=== PATIENT | female | born 1945 | race Caucasian/White ===

== ENCOUNTER 2017-07-19 15:32 | Inpatient (IN) | payer BC, MEDICARE ==
[2017-07-19] MEDS ORDERED: Sodium Chloride 0.9% 5 ML Syringe FLUSH PRN (15:39)
[2017-07-19] MEDS ORDERED: Ondansetron 4 MG/2 ML SDV IVPUSH ONE (15:42)
[2017-07-19] MEDS ORDERED: Acetaminophen 325 MG Tab PO ONE (15:44)
--- NOTE | 2017-07-19 15:49 | EDM.PDOC ---
ED HPI GENERAL MEDICAL PROBLEM - General Chief Complaint: Respiratory Problem Stated Complaint: FEVER, SOB Time Seen by Provider: 07/19/17 15:39 Source of Information: Reports: Patient History Limitations: Reports: No Limitations - History of Present Illness INITIAL COMMENTS - FREE TEXT/NARRATIVE: PATIENT IS A 71-YEAR-OLD FEMALE WHO PRESENTS TO THE EMERGENCY DEPARTMENT THIS AFTERNOON VIA EMS FOR COMPLAINT OF FEVER AND SHORTNESS OF BREATH. PATIENT STATES THAT SHE HAS HAD BRONCHITIS FOR 2 WEEKS AND FELT WORSE YESTERDAY, AND HAD NAUSEA, VOMITING, DIARRHEA, A FEVER. THIS MORNING SHE NOTICED A BLOTCHY RASH ON CHEST AND ABDOMEN AND WAS BECOMING MORE SHORT OF BREATH. PATIENT CONTACTED [facility] AND WAS ADVISED TO CALL 911. PATIENT WAS FOUND TACHYCARDIC, TACHYPNEIC, AND HAD A FEVER OF 103 PER EMS. PATIENT DENIES CHEST PAIN, NECK STIFFNESS, ABDOMINAL PAIN, OR EXTREMITY EDEMA. Onset: Gradual Onset Date: 07/18/17 Duration: Day(s): Location: Reports: Chest Quality: Reports: Ache Severity: Mild Improves with: Reports: None Worsens with: Reports: Breathing Associated Symptoms: Reports: Fever/Chills, Headaches, Rash, Shortness of Breath - Related Data Allergies Allergy/AdvReac Type Severity Reaction Status Date / Time morphine Allergy Rash Verified 07/19/17 16:08 Home Meds: Home Meds Dasatinib [Sprycel] 100 mg PO DAILY 06/14/16 [History] Etodolac [Etodolac] 500 mg PO DAILY PRN 06/14/16 [History] LORazepam [Ativan] 0.5 mg PO Q6H PRN 06/14/16 [History] oxyCODONE ER [OxyCONTIN] 20 mg PO BID PRN 06/14/16 [History] Cholecalciferol (Vitamin D3) [Vitamin D3] 2,000 units PO DAILY 07/19/17 [History ] Cyanocobalamin (Vitamin B12) [Vitamin B12] 500 mcg PO DAILY 07/19/17 [History] Ferrous Sulfate 325 mg PO DAILY 07/19/17 [History] Multivitamin [Multivitamins] 1 cap PO DAILY 07/19/17 [History] Ranitidine HCl [Ranitidine] 150 mg PO BID 07/19/17 [History] Triamcinolone Acetonide [Kenalog 0.1% Crm] 1 applic TOP DAILY PRN 07/19/17 [ History] Past Medical History Musculoskeletal History: Reports: Back Pain, Chronic Neurological History: Reports: Headaches, Chronic, Migraines Psychiatric History: Reports: Anxiety Oncologic (Cancer) History: Reports: Leukemia, Other (See Below) Other Oncologic History: Leukemia diagnosed 2006; takes spiracel po daily. - Past Surgical History GI Surgical History: Reports: Appendectomy, Bariatric Procedure, Cholecystectomy Neurological Surgical History: Reports: Spinal Fusion Musculoskeletal Surgical History: Reports: Other (See Below) Oncologic Surgical History: Reports: Bone Marrow Aspiration Social & Family History - Tobacco Use Smoking Status *Q: Never Smoker Second Hand Smoke Exposure: No - Alcohol Use Days Per Week of Alcohol Use: 0 - Recreational Drug Use Recreational Drug Use: No ED ROS GENERAL - Review of Systems Review Of Systems: ROS reveals no pertinent complaints other than HPI. Constitutional: Reports: Fever, Chills, Fatigue HEENT: Reports: No Symptoms Respiratory: Reports: Shortness of Breath, Pleuritic Chest Pain Cardiovascular: Reports: No Symptoms Endocrine: Reports: No Symptoms GI/Abdominal: Reports: Nausea : Reports: No Symptoms Musculoskeletal: Reports: No Symptoms Skin: Reports: Rash (CHEST AND ABDOMEN) Neurological: Reports: No Symptoms Psychiatric: Reports: No Symptoms Hematologic/Lymphatic: Reports: No Symptoms Immunologic: Reports: No Symptoms ED EXAM, GENERAL - Physical Exam Exam: See Below Exam Limited By: No Limitations General Appearance: Alert, WD/WN, Mild Distress Eye Exam: Bilateral Eye: Normal Inspection Nose: Normal Inspection, Normal Mucosa, No Blood Throat/Mouth: Normal Inspection, Normal Oropharynx, No Airway Compromise, Other (NO TONGUE EDEMA) Head: Atraumatic, Normocephalic. No: Facial Swelling Neck: Normal Inspection. No: Lymphadenopathy (L), Lymphadenopathy (R) Respiratory/Chest: No Respiratory Distress, Rales (BIBASILAR) Cardiovascular: No Murmur, Tachycardia GI/Abdominal: Normal Bowel Sounds, Soft, Non-Tender Back Exam: Normal Inspection. No: CVA Tenderness (L), CVA Tenderness (R) Extremities: Normal Inspection, No Pedal Edema Neurological: Alert, Oriented, Normal Cognition Psychiatric: Normal Affect, Normal Mood Skin Exam: Warm, Dry, Intact, Normal Color, Rash (ERYTHEMATOUS URTICARIA THAT BLANCHES.) Lymphatic: No Adenopathy Course - Vital Signs Last Recorded V/S: Last Vital Signs Temp 103.1 F H 07/19/17 16:03 Pulse 122 H 07/19/17 16:03 Resp 36 H 07/19/17 16:03 BP 146/97 H 07/19/17 16:03 Pulse Ox 99 07/19/17 16:03 - Orders/Labs/Meds Orders: Active Orders 24 hr Category Date Time Status EKG Documentation Completion [RC] ASDIRECTED Care 07/19/17 15:40 Active Oxygen Therapy [RC] PRN Care 07/19/17 15:39 Active Peripheral IV Care [RC] . DIRECTED Care 07/19/17 15:40 Active Pulse Oximetry [RC] CONTINUOUS Care 07/19/17 15:39 Active Chest 2V [CR] Stat Exams 07/19/17 15:39 Ordered COMPREHENSIVE METABOLIC PN,CMP [CHEM] Stat Lab 07/19/17 16:00 Received CULTURE BLOOD [BC] Stat Lab 07/19/17 15:45 Received CULTURE BLOOD [BC] Stat Lab 07/19/17 16:00 Received INFLUENZA A+B AG SCREEN [RM] Stat Lab 07/19/17 15:45 Received LACTIC ACID [CHEM] Stat Lab 07/19/17 16:00 Received MAGNESIUM [CHEM] Stat Lab 07/19/17 16:00 Received TROPONIN I [CHEM] Stat Lab 07/19/17 16:00 Received Sodium Chloride 0.9% [Syrex Flush] Med 07/19/17 15:39 Active 5 ml FLUSH Q8HR PRN Blood Culture x2 Reflex Set [OM.PC] Stat Oth 07/19/17 15:40 Ordered Peripheral IV Insertion Adult [OM.PC] Urgent Oth 07/19/17 15:39 Ordered Medication Orders Sodium Chloride (Syrex Flush) 5 ml FLUSH Q8HR PRN PRN Reason: Keep Vein Open Labs: Laboratory Tests 07/19/17 Range/Units 16:00 WBC 20.6 H (5.0-10.0) 10^3/uL RBC 4.32 (3.80-5.50) 10^6/uL Hgb 12.6 (12.0-16.0) g/dL Hct 38.0 (37.0-47.0) % MCV 88.1 (82.0-92.0) fL MCH 29.2 (27.0-31.0) pg MCHC 33.2 (32.0-36.0) g/dL RDW 13.8 (11.5-14.5) % Plt Count 391 H (150-300) 10^3/uL MPV 7.3 L (7.4-10.4) fL Neut % (Auto) 93.4 H (50.0-70.0) % Lymph % (Auto) 4.5 L (20.0-40.0) % [place] % (Auto) 2.0 (2.0-8.0) % Eos % (Auto) 0.1 L (1.0-3.0) % Baso % (Auto) 0.0 (0.0-1.0) % Neut # (Auto) 19.3 H (2.5-7.0) 10^3/uL Lymph # (Auto) 0.9 L (1.0-4.0) 10^3/uL [place] # (Auto) 0.4 (0.1-0.8) 10^3/uL Eos # (Auto) 0.0 L (0.1-0.3) 10^3/uL Baso # (Auto) 0.0 (0.0-0.1) 10^3/uL Meds: Medications Generic Name Dose Route Start Last Admin Trade Name Freq PRN Reason Stop Dose Admin Sodium Chloride 5 ml 07/19/17 15:39 Syrex Flush FLUSH Q8HR PRN Keep Vein Open Discontinued Medications Generic Name Dose Route Start Last Admin Trade Name Freq PRN Reason Stop Dose Admin Acetaminophen 650 mg 07/19/17 15:44 Tylenol PO 07/19/17 15:45 NOW ONE Sodium Chloride 500 mls @ 999 mls/hr 07/19/17 15:39 Normal Saline IV 07/19/17 16:09 .BOLUS ONE Ondansetron HCl 4 mg 07/19/17 15:42 Zofran IVPUSH 07/19/17 15:43 ONETIME ONE - Radiology Interpretation Free Text/Narrative:: Chest x-ray shows mild bilateral lower lobe pneumonia - Re-Assessments/Exams Free Text/Narrative Re-Assessment/Exam: 07/19/17 17:24 Patient afebrile, nontoxic appearing, vital signs stable. Rocephin and Zithromax given. Discussed case with Lilly Carlton at the [facility] and she will admit patient and follow. Departure - Departure Time of Disposition: 17:26 Disposition: Admitted As Inpatient 68 Condition: Fair Clinical Impression: Pneumonia Qualifiers: Pneumonia type: due to unspecified organism Laterality: bilateral Lung location : lower lobe of lung Qualified Code(s): J18.9 - Pneumonia, unspecified organism - Discharge Information Referrals: PCP,Unobtain [Primary Care Provider] - Forms: ED Department Discharge - My Orders Last 24 Hours: My Active Orders 07/19/17 15:39 Oxygen Therapy [RC] PRN Pulse Oximetry [RC] CONTINUOUS Chest 2V [CR] Stat Sodium Chloride 0.9% [Syrex Flush] 5 ml FLUSH Q8HR PRN Peripheral IV Insertion Adult [OM.PC] Urgent 07/19/17 15:40 EKG Documentation Completion [RC] ASDIRECTED Peripheral IV Care [RC] . DIRECTED Blood Culture x2 Reflex Set [OM.PC] Stat 07/19/17 15:45 CULTURE BLOOD [BC] Stat INFLUENZA A+B AG SCREEN [RM] Stat 07/19/17 16:00 COMPREHENSIVE METABOLIC PN,CMP [CHEM] Stat CULTURE BLOOD [BC] Stat LACTIC ACID [CHEM] Stat MAGNESIUM [CHEM] Stat TROPONIN I [CHEM] Stat - Assessment/Plan Last 24 Hours: My Active Orders 07/19/17 15:39 Oxygen Therapy [RC] PRN Pulse Oximetry [RC] CONTINUOUS Chest 2V [CR] Stat Sodium Chloride 0.9% [Syrex Flush] 5 ml FLUSH Q8HR PRN Peripheral IV Insertion Adult [OM.PC] Urgent 07/19/17 15:40 EKG Documentation Completion [RC] ASDIRECTED Peripheral IV Care [RC] . DIRECTED Blood Culture x2 Reflex Set [OM.PC] Stat 07/19/17 15:45 CULTURE BLOOD [BC] Stat INFLUENZA A+B AG SCREEN [RM] Stat 07/19/17 16:00 COMPREHENSIVE METABOLIC PN,CMP [CHEM] Stat CULTURE BLOOD [BC] Stat LACTIC ACID [CHEM] Stat MAGNESIUM [CHEM] Stat TROPONIN I [CHEM] Stat Assessment:: Pneumonia Plan: Admission to inpatient
[2017-07-19] MEDS: Sodium Chloride 0.9% 500 ML IV ONE ×2 (15:58→16:51)
[2017-07-19 16:33] LABS: CHLORIDE,CL 94 mmol/L (98-115); SODIUM,NA 130 mmol/L (136-145)
[2017-07-19] MEDS ORDERED: Sodium Chloride 0.9% 500 ML ONE (16:45)
[2017-07-19] MEDS ORDERED: Sodium Chloride 0.9% 500 ML IV SCH (16:45)
[2017-07-19] MEDS ORDERED: Azithromycin 500 MG in Sodium Chloride 0.9% 250 ML IV ONE (17:20)
[2017-07-19] MEDS ORDERED: cefTRIAXone 1 GM Vial IVPUSH ONE (17:20)
[2017-07-19] MEDS ORDERED: Dextrose 5%-0.45% NaCl 1,000 ML IV SCH (18:15)
[2017-07-19] MEDS: Dextrose 5%-0.45% NaCl 1,000 ML IV SCH (18:45)
[2017-07-19] MEDS ORDERED: Ibuprofen 600 MG Tab PO ONE (19:02)
[2017-07-19] MEDS ORDERED: TRIAMCINOLONE ACETONIDE 0.025% TOP PRN (19:33)
[2017-07-19] MEDS: LORazepam 0.5 MG Tab PO SCH (20:07)
[2017-07-19] MEDS: oxyCODONE ER 10 MG TAB.ER PO SCH (20:08)
[2017-07-20] MEDS ORDERED: diphenhydrAMINE 25 MG Cap PO ONE (05:44)
[2017-07-20] MEDS ORDERED: methylPREDNISolone Sodium Succinate 125 MG/2 ML SDV IVPUSH ONE (05:49)
[2017-07-20] MEDS: Triamcinolone Acetonide 0.1% Oint 15 GM Tube TOP PRN ×2 (06:07→21:26)
[2017-07-20 08:01] LABS: CHLORIDE,CL 97 mmol/L (98-115); SODIUM,NA 132 mmol/L (136-145)
--- NOTE | 2017-07-20 09:30 | PCM.HP ---
H&P History of Present Illness - General Date of Service: 07/20/17 Admit Problem/Dx: Admission Diagnosis/Problem Admission Diagnosis/Problem Pneumonia Source of Information: Patient, Old Records, RN History Limitations: Reports: No Limitations Generalized Pain Score (Numeric/FACES): 3 - Related Data Allergies/Adverse Reactions: Allergies Allergy/AdvReac Type Severity Reaction Status Date / Time morphine Allergy Rash Verified 07/19/17 16:08 Home Medications: Home Meds Dasatinib [Sprycel] 100 mg PO BEDTIME 06/14/16 [History] Etodolac [Etodolac] 500 mg PO DAILY 06/14/16 [History] LORazepam [Ativan] 0.5 mg PO BEDTIME 06/14/16 [History] oxyCODONE ER [OxyCONTIN] 20 mg PO BEDTIME 06/14/16 [History] Cholecalciferol (Vitamin D3) [Vitamin D3] 2,000 units PO DAILY 07/19/17 [History ] Cyanocobalamin (Vitamin B12) [Vitamin B12] 500 mcg PO DAILY 07/19/17 [History] Ferrous Sulfate 325 mg PO DAILY 07/19/17 [History] Multivitamin [Multivitamins] 1 cap PO DAILY 07/19/17 [History] Ranitidine HCl [Ranitidine] 150 mg PO BIDAC 07/19/17 [History] Triamcinolone Acetonide [Triamcinolone Acetonide 0.025% Crm] 1 applic TOP DAILY PRN 07/20/17 [History] Past Medical History HEENT History: Reports: Impaired Vision Gastrointestinal History: Reports: GERD Musculoskeletal History: Reports: Back Pain, Chronic Neurological History: Reports: Headaches, Chronic, Migraines Psychiatric History: Reports: Anxiety Endocrine/Metabolic History: Reports: Obesity/BMI 30+ Oncologic (Cancer) History: Reports: Leukemia, Other (See Below) Other Oncologic History: Leukemia diagnosed 2006; takes spiracel po daily. - Infectious Disease History Infectious Disease History: Reports: Chicken Pox, Measles, Mumps - Past Surgical History Head Surgeries/Procedures: Reports: None HEENT Surgical History: Reports: Tonsillectomy GI Surgical History: Reports: Appendectomy, Bariatric Procedure, Cholecystectomy Endocrine Surgical History: Reports: None Neurological Surgical History: Reports: Spinal Fusion Musculoskeletal Surgical History: Reports: Arthroscopic Knee, Other (See Below) Other Musculoskeletal Surgeries/Procedures:: bone taken from hip and placed in lower back Oncologic Surgical History: Reports: Bone Marrow Aspiration Dermatological Surgical History: Reports: None Social & Family History - Family History Family Medical History: Noncontributory - Tobacco Use Smoking Status *Q: Never Smoker Second Hand Smoke Exposure: No - Caffeine Use Caffeine Use: Reports: Soda - Alcohol Use Days Per Week of Alcohol Use: 0 - Recreational Drug Use Recreational Drug Use: No H&P Review of Systems - Review of Systems: Review Of Systems: See Below General: Reports: Fever, Chills (yesterday severe chills, none now), Decreased Appetite (poor appetite past 2 weeks however improved today. ). Denies: Night Sweats, Weight Loss, Weight Gain HEENT: Reports: Other (on/off dizziness past 2 weeks yessi since fever. ). Denies : Hearing Changes, Sore Throat, Vertigo Pulmonary: Reports: Shortness of Breath. Denies: Wheezing, Cough, Sputum Cardiovascular: Reports: Lightheadedness. Denies: Chest Pain, Palpitations, Orthopnea, PND, Syncope, Blood Pressure Problem Gastrointestinal: Reports: Black Stool (black stools for past 3 weeks. ), Diarrhea (loose stools past 3 weeks. ), Decreased Appetite. Denies: Abdominal Pain, Anorexia, Bloody Stool, Constipation Genitourinary: Denies: Dysuria, Frequency, Burning, Pain, Urgency, Incontinence , Hematuria Musculoskeletal: Reports: Back Pain (hx of surgery on spine, bone cadaver. ) Skin: Reports: Pallor, Rash Psychiatric: Reports: No Symptoms Neurological: Reports: No Symptoms Hematologic/Lymphatic: Reports: Other (on Iron. ). Denies: Anemia Immunologic: Reports: No Symptoms, Other (allergy to morphine ) Exam - Exam Exam: See Below - Vital Signs Vital Signs: Last Vital Signs Temp 97.2 F 07/20/17 06:19 Pulse 98 07/20/17 06:19 Resp 22 H 07/20/17 06:19 BP 119/53 L 07/20/17 06:19 Pulse Ox 98 07/20/17 07:00 Weight: 265 lb 2 oz - Exam Quality Assessment: No: Supplemental Oxygen General: Alert, Oriented, Cooperative. No: Mild Distress HEENT: No: Mucosa Moist & Innovation Neck: Supple Lungs: Rhonchi Cardiovascular: Regular Rate, Regular Rhythm, Systolic Murmur (Grade II) GI/Abdominal Exam: Normal Bowel Sounds (Female) Exam: Deferred Rectal (Female) Exam: Deferred, Black Stool Back Exam: No: CVA Tenderness (L), CVA Tenderness (R) Skin: Other (diffuse erythematous rash right thigh, left side of left breast and back, non-coalescent, nonblanching,) Neurological: Cranial Nerves Intact Neuro Extensive - Mental Status: Alert, Oriented x3, Normal Mood/Affect, Normal Cognition Psychiatric: Alert, Normal Affect, Normal Mood - Patient Data Lab Results Last 24 hrs: Laboratory Results - last 24 hr 07/19/17 07/20/17 07/20/17 Range/Units 18:45 07:29 07:29 WBC 17.3 H (5.0-10.0) 10^3/uL RBC 3.61 L (3.80-5.50) 10^6/uL Hgb 10.9 L D (12.0-16.0) g/dL Hct 32.0 L (37.0-47.0) % MCV 88.5 (82.0-92.0) fL MCH 30.2 (27.0-31.0) pg MCHC 34.1 (32.0-36.0) g/dL RDW 13.8 (11.5-14.5) % Plt Count 316 H D (150-300) 10^3/uL MPV 7.5 (7.4-10.4) fL Neut % (Auto) 89.8 H (50.0-70.0) % Lymph % (Auto) 6.1 L (20.0-40.0) % [place] % (Auto) 3.2 (2.0-8.0) % Eos % (Auto) 0.2 L (1.0-3.0) % Baso % (Auto) 0.7 (0.0-1.0) % Neut # (Auto) 15.5 H (2.5-7.0) 10^3/uL Lymph # (Auto) 1.1 (1.0-4.0) 10^3/uL [place] # (Auto) 0.6 (0.1-0.8) 10^3/uL Eos # (Auto) 0.0 L (0.1-0.3) 10^3/uL Baso # (Auto) 0.1 (0.0-0.1) 10^3/uL Sodium 132 L (136-145) mmol/L Potassium 3.4 (3.3-5.3) mmol/L Chloride 97 L (98-115) mmol/L Carbon Dioxide 24.4 (21.0-32.0) mmol/L BUN 16 (6-25) mg/dL Creatinine 0.71 (0.51-1.17) mg/dL Est Cr Clr Drug Dosing 70.01 mL/min Estimated GFR (MDRD) > 60 mL/min Glucose 129 H (70-110) mg/dL Calcium 8.1 L (8.7-10.3) mg/dL Total Bilirubin 0.6 (0.2-1.0) mg/dL AST 25 (15-37) U/L ALT 31 (12-78) U/L Alkaline Phosphatase 98 (46-116) IU/L Total Protein 6.3 L (6.4-8.2) g/dL Albumin 2.51 L (3.00-4.80) g/dL Specimen Type Urinvoid Urine Color Yellow (YELLOW) Urine Appearance Slightly cloudy H (CLEAR) Urine pH 5.0 (5.0-9.0) Ur Specific [place] 1.015 (1.005-1.030) Urine Protein 100 H (NEGATIVE) mg/dL Urine Glucose (UA) Negative (NEGATIVE) mg/dL Urine Ketones 15 H (NEGATIVE) mg/dL Urine Occult Blood Trace-intact H (NEGATIVE) Urine Nitrite Negative (NEGATIVE) Urine Bilirubin Large H (NEGATIVE) Urine Urobilinogen 0.2 (0.2-1.0) E.U./dL Ur Leukocyte Esterase Small H (NEGATIVE) Urine RBC 0-5 /HPF Urine WBC >100 H /HPF Ur Epithelial Cells Few /LPF Urine Bacteria Moderate H (NONE TO FEW) /HPF Result Diagrams: 07/21/17 07:33 07/21/17 07:33 *Q Meaningful Use (ADM) - VTE *Q VTE Criteria *Q: - Stroke *Q Stroke Criteria *Q: - AMI *Q AMI Criteria *Q: Problem List Initiated/Reviewed/Updated: Yes Orders Last 24hrs: Active Orders 24 hr Category Date Time Status Activity as Tolerated [RC] DAILY Care 07/19/17 18:15 Active Regular Diet [DIET] Diet 02/22/18 Dinner Active CULTURE URINE [RM] Routine Lab 07/19/17 18:45 Received Acetaminophen [Tylenol Extra Strength] Med 07/19/17 18:41 Active 1,000 mg PO Q4H PRN Cholecalciferol (Vitamin D3) [Vitamin D3] Med 07/20/17 09:00 Active 2,000 units PO DAILY Cyanocobalamin (Vitamin B12) [Vitamin B12] Med 07/20/17 09:00 Active 500 mcg PO DAILY Dasatinib [Sprycel] Med 07/19/17 21:00 Active 100 mg PO BEDTIME Dextrose 5%-0.45% NaCl [Dextrose 5%-1/2 NS] 1,000 ml Med 07/19/17 18:45 Active IV ASDIRECTED Etodolac [Etodolac] Med 07/20/17 09:00 Active 500 mg PO DAILY Ferrous Sulfate Med 07/20/17 09:00 Active 325 mg PO DAILY LORazepam [Ativan] Med 07/19/17 21:00 Active 0.5 mg PO BEDTIME Non-Formulary Medication [NF Drug] Med 07/19/17 19:33 Pending 0 each TOP DAILY PRN Ranitidine [Zantac] Med 07/19/17 21:00 Active 150 mg PO BID Triamcinolone Acetonide [Triamcinolone Acetonide 0.1% Med 07/20/17 05:45 Active Oint] 0.5 gm TOP BID PRN oxyCODONE ER [OxyCONTIN] Med 07/19/17 21:00 Active 20 mg PO BEDTIME Medication Orders Acetaminophen (Tylenol Extra Strength) 1,000 mg PO Q4H PRN PRN Reason: Fever Cholecalciferol (Vitamin D3) 2,000 units PO DAILY CHIP Cyanocobalamin (Vitamin B12) 500 mcg PO DAILY CHIP Ferrous Sulfate (Ferrous Sulfate) 325 mg PO DAILY CHIP Sodium Chloride (Normal Saline) 500 mls @ 500 mls/hr IV ASDIRECTED CHIP Last Admin: 07/19/17 16:53 Dose: 500 mls/hr Dextrose/Sodium Chloride (Dextrose 5%-1/2 Ns) 1,000 mls @ 50 mls/hr IV ASDIRECTED CHIP Last Admin: 07/19/17 18:45 Dose: 50 mls/hr Lorazepam (Ativan) 0.5 mg PO BEDTIME CHIP Last Admin: 07/19/17 20:07 Dose: 0.5 mg (Dasatinib [Sprycel] (100 Mg)*Pt Own Med*) 100 mg PO BEDTIME [facility] Last Admin: 07/19/17 20:08 Dose: 100 mg (Etodolac [Etodolac] (500 Mg)*Pt Own Med*) 500 mg PO DAILY [facility] Triamcinolone Acetonide 0.025% Cream*Pt Own Med* 0 each TOP DAILY PRN PRN Reason: Rash Oxycodone HCl (Oxycontin) 20 mg PO BEDTIME [facility] Last Admin: 07/19/17 20:08 Dose: 20 mg Ranitidine HCl (Zantac) 150 mg PO BID [facility] Last Admin: 07/19/17 20:08 Dose: 150 mg Sodium Chloride (Syrex Flush) 5 ml FLUSH Q8HR PRN PRN Reason: Keep Vein Open Triamcinolone Acetonide (Triamcinolone Acetonide 0.1% Oint) 0.5 gm TOP BID PRN PRN Reason: Itching Last Admin: 07/20/17 06:07 Dose: 1 applic Assessment/Plan Comment:: HISTORY OF PRESENT ILLNESS 71-year-old female was admitted through the ED department due to fever shortness of breath. She states she has been having some upper respiratory bronchitis like symptoms for about 2 weeks, fever chills yesterday feels better today. Yesterday on admission she noticed a significant puritic rash on her chest abdomen. She stated this rash was quite significant on her left thigh about one month ago--spontaneously resolved however now with on her left leg back and left breast. significant ED findings white count 20,000 Lactic acid 2.2 (likely before hydration) UTI, however asymptomatic Chest x-ray,mild interstitial bilateral infiltrates, possible PA and lateral, negative influenza Rocephin and Zithromax Primary impression Pneumonia, CAP, POA, likely strep, although positive blood cultures gram- positive cocci both anaerobic and aerobic will continue with course of treatment for now since she is improving clinically, definitive ABX changed will be determined on BC surveillance. If Strep will remove azithromycin, Hold TNF for her CML. Bacteremia, lactic acid slightly high before hydration. MAP adequate, in the setting of infection qSOFA, 05/31. blood culture surveillance, afebrile, Anemia, not present on admission, normocytic normochromic, likely WBC > RBC stem -cell production, infection related. HX CML Rash, right anterior medial thigh, back, left breast, confluent, warm to touch, smooth, non-petechial, received steroids. does not appear to be cellulitis, likely inflammatory reaction to infection, Hold TNF but doubtful contributory. conservative tx for now. Outline monitor progress. Thrombocytosis, reactive, trending positively Hyponatremia, hypotonic, improved. Urinary tract infection, uncomplicated, asymptomatic. Likely cross covered Chronic myelogenous leukemia, (CML) dx 2006, followed by oncologist, will hold TNF. Consultation, reviewed case with oncologist Dr. Gregg, he agrees with plan. Continue to monitor other chronic conditions hiatal hernia Obesity Osteopenia Gastric bypass, on vitamin B12 supplementation history of laminectomy, chronic back pain, spondylolisthesis, On COT, MEDD 60mg. Hold TNF, continue with course of treatment for now since she is improving clinically, BC Surveillance
[2017-07-20] MEDS: Ferrous Sulfate 325 MG Tab PO SCH (09:58)
[2017-07-20] MEDS: Cyanocobalamin (Vitamin B12) 500 MCG Tab PO SCH (09:58)
[2017-07-20] MEDS: Cholecalciferol (Vitamin D3) 1,000 Unit Tab PO SCH (09:59)
[2017-07-20] MEDS: Dextrose 5%-0.45% NaCl 1,000 ML IV SCH (14:59)
[2017-07-20] MEDS: cefTRIAXone 1 GM Vial IVPUSH SCH (16:15)
[2017-07-20] MEDS: Azithromycin 500 MG in Sodium Chloride 0.9% 250 ML IV SCH (17:38)
[2017-07-20] MEDS: LORazepam 0.5 MG Tab PO SCH (21:26)
[2017-07-20] MEDS: oxyCODONE ER 10 MG TAB.ER PO SCH (21:26)
[2017-07-21] MEDS: Acetaminophen 500 MG Tab PO PRN ×3 (03:03→14:03)
[2017-07-21 08:04] LABS: CHLORIDE,CL 101 mmol/L (98-115); SODIUM,NA 136 mmol/L (136-145)
[2017-07-21] MEDS: Ferrous Sulfate 325 MG Tab PO SCH (08:39)
[2017-07-21] MEDS: Cyanocobalamin (Vitamin B12) 500 MCG Tab PO SCH (08:42)
[2017-07-21] MEDS: Cholecalciferol (Vitamin D3) 1,000 Unit Tab PO SCH (08:42)
[2017-07-21] MEDS: Triamcinolone Acetonide 0.1% Oint 15 GM Tube TOP PRN ×2 (09:27→22:15)
--- NOTE | 2017-07-21 10:07 | PCM.PN ---
- General Info Date of Service: 07/21/17 Functional Status: Reports: Pain Controlled, Tolerating Diet, Urinating, New Symptoms (Severe left-sided temporal headache, she states it started after azithromycin administration IV last night). Denies: Ambulating - Review of Systems General: Denies: Fever, Weakness HEENT: Reports: Headaches (Left-sided temporal headache, sharp, pounding,) Pulmonary: Reports: No Symptoms Cardiovascular: Reports: No Symptoms Gastrointestinal: Reports: No Symptoms Genitourinary: Denies: Dysuria, Frequency, Flank Pain Skin: Reports: Rash (Back, abdomen, left breast and right thigh--improvement) Neurological: Denies: Confusion, Dizziness, Numbness, Paresthesia, Change in Speech Psychiatric: Reports: No Symptoms - Patient Data Vitals - Most Recent: Last Vital Signs Temp 98.6 F 07/21/17 06:56 Pulse 76 07/21/17 06:56 Resp 16 07/21/17 06:56 BP 120/55 L 07/21/17 06:56 Pulse Ox 96 07/21/17 08:10 Weight - Most Recent: 265 lb 2 oz I&O - Last 24 Hours: Intake & Output 07/20/17 07/21/17 07/21/17 22:59 06:59 14:59 Intake Total 910 1125 Output Total 1600 300 Balance -690 825 Lab Results Last 24 Hours: Laboratory Results - last 24 hr 07/21/17 07/21/17 Range/Units 07:33 07:33 WBC 10.6 H (5.0-10.0) 10^3/uL RBC 3.34 L (3.80-5.50) 10^6/uL Hgb 9.9 L (12.0-16.0) g/dL Hct 29.6 L (37.0-47.0) % MCV 88.7 (82.0-92.0) fL MCH 29.6 (27.0-31.0) pg MCHC 33.4 (32.0-36.0) g/dL RDW 14.0 (11.5-14.5) % Plt Count 331 H (150-300) 10^3/uL MPV 7.4 (7.4-10.4) fL Neut % (Auto) 76.7 H (50.0-70.0) % Lymph % (Auto) 13.4 L (20.0-40.0) % [place] % (Auto) 8.5 H (2.0-8.0) % Eos % (Auto) 0.5 L (1.0-3.0) % Baso % (Auto) 0.9 (0.0-1.0) % Neut # (Auto) 8.1 H (2.5-7.0) 10^3/uL Lymph # (Auto) 1.4 (1.0-4.0) 10^3/uL [place] # (Auto) 0.9 H (0.1-0.8) 10^3/uL Eos # (Auto) 0.1 (0.1-0.3) 10^3/uL Baso # (Auto) 0.1 (0.0-0.1) 10^3/uL Sodium 136 (136-145) mmol/L Potassium 3.3 (3.3-5.3) mmol/L Chloride 101 (98-115) mmol/L Carbon Dioxide 24.1 (21.0-32.0) mmol/L BUN 17 (6-25) mg/dL Creatinine 0.66 (0.51-1.17) mg/dL Est Cr Clr Drug Dosing 75.31 mL/min Estimated GFR (MDRD) > 60 mL/min Glucose 123 H (70-110) mg/dL Calcium 8.4 L (8.7-10.3) mg/dL Rj Results Last 24 Hours: Microbiology 07/19/17 18:45 Urine Culture - Preliminary Urine, Voided NO GROWTH AFTER 1 DAY Med Orders - Current: Current Medications Acetaminophen (Tylenol Extra Strength) 1,000 mg PO Q4H PRN PRN Reason: Fever Last Admin: 07/21/17 08:39 Dose: 1,000 mg Ceftriaxone Sodium (Rocephin) 1 gm IVPUSH Q24H [facility] Last Admin: 07/20/17 16:15 Dose: 1 gm Cholecalciferol (Vitamin D3) 2,000 units PO DAILY [facility] Last Admin: 07/21/17 08:42 Dose: 2,000 units Cyanocobalamin (Vitamin B12) 500 mcg PO DAILY [facility] Last Admin: 07/21/17 08:42 Dose: 500 mcg Ferrous Sulfate (Ferrous Sulfate) 325 mg PO DAILY [facility] Last Admin: 07/21/17 08:39 Dose: 325 mg Dextrose/Sodium Chloride (Dextrose 5%-1/2 Ns) 1,000 mls @ 50 mls/hr IV ASDIRECTED [facility] Last Admin: 07/20/17 14:59 Dose: 50 mls/hr Azithromycin 500 mg/ Sodium (Chloride) 250 mls @ 250 mls/hr IV Q24H [facility] Last Admin: 07/20/17 17:38 Dose: 250 mls/hr Lorazepam (Ativan) 0.5 mg PO BEDTIME [facility] Last Admin: 07/20/17 21:26 Dose: 0.5 mg (Dasatinib [Sprycel] (100 Mg)*Pt Own Med*) 100 mg PO BEDTIME [facility] Last Admin: 07/19/17 20:08 Dose: 100 mg (Etodolac [Etodolac] (500 Mg)*Pt Own Med*) 500 mg PO DAILY [facility] Last Admin: 07/21/17 08:43 Dose: 500 mg Oxycodone HCl (Oxycontin) 20 mg PO BEDTIME [facility] Last Admin: 07/20/17 21:26 Dose: 20 mg Ranitidine HCl (Zantac) 150 mg PO BIDAC [facility] Last Admin: 07/21/17 07:51 Dose: 150 mg Sodium Chloride (Syrex Flush) 5 ml FLUSH Q8HR PRN PRN Reason: Keep Vein Open Triamcinolone Acetonide (Triamcinolone Acetonide 0.1% Oint) 0.5 gm TOP BID PRN PRN Reason: Itching Last Admin: 07/21/17 09:27 Dose: 1 applic Discontinued Medications Acetaminophen (Tylenol) 650 mg PO NOW ONE Stop: 07/19/17 15:45 Last Admin: 07/19/17 16:00 Dose: 650 mg Ceftriaxone Sodium (Rocephin) 1 gm IVPUSH ONETIME ONE Stop: 07/19/17 17:21 Last Admin: 07/19/17 17:27 Dose: 1 gm Diphenhydramine HCl (Benadryl) 25 mg PO ONETIME ONE Stop: 07/20/17 05:45 Last Admin: 07/20/17 06:05 Dose: 25 mg Sodium Chloride (Normal Saline) 500 mls @ 999 mls/hr IV .BOLUS ONE Stop: 07/19/17 16:09 Last Infusion: 02/21/18 16:29 Dose: Infused Sodium Chloride (Normal Saline) 500 mls @ 500 mls/hr IV ASDIRECTED [facility] Last Admin: 07/19/17 16:53 Dose: 500 mls/hr Sodium Chloride (Normal Saline) Confirm Administered Dose 500 mls @ as directed .ROUTE .STK-MED ONE Stop: 07/19/17 16:46 Last Admin: 07/19/17 16:50 Dose: Not Given Azithromycin 500 mg/ Sodium (Chloride) 250 mls @ 250 mls/hr IV ONETIME ONE Stop: 07/19/17 18:19 Last Admin: 07/19/17 18:05 Dose: 250 mls/hr Dextrose/Sodium Chloride (Dextrose 5%-1/2 Ns) 1,000 mls @ 75 mls/hr IV ASDIRECTED [facility] Ibuprofen (Motrin) 600 mg PO ONETIME ONE Stop: 07/19/17 19:03 Last Admin: 07/19/17 19:08 Dose: 600 mg Methylprednisolone Sodium Succinate (Solu-Medrol) 40 mg IVPUSH ONETIME ONE Stop: 07/20/17 05:50 Last Admin: 07/20/17 06:05 Dose: 40 mg Ondansetron HCl (Zofran) 4 mg IVPUSH ONETIME ONE Stop: 07/19/17 15:43 Last Admin: 07/19/17 15:58 Dose: 4 mg Ranitidine HCl (Zantac) 150 mg PO BID [facility] Last Admin: 07/20/17 09:59 Dose: 150 mg - Exam Quality Assessment: No: Supplemental Oxygen General: Alert, Oriented HEENT: Pupils Equal, Pupils Reactive, Mucous Membr. Moist/[place], Other (No tenderness palpable temporal artery) Neck: Supple, No JVD. No: Lymphadenopathy Lungs: Clear to Auscultation, Normal Respiratory Effort Cardiovascular: Regular Rate, Regular Rhythm, Murmurs GI/Abdominal Exam: Soft, No Distention (Female) Exam: Deferred Back Exam: No: CVA Tenderness (L), CVA Tenderness (R) Extremities: Normal Capillary Refill, Increased Warmth (Increased warmth to area on right leg) Skin: Rash (Improving rash, receding from margins posterior thorax, right thigh , left side of breast) Neurological: Normal Speech (no dysarthria), Cranial Nerves Intact - Problem List Review Problem List Initiated/Reviewed/Updated: Yes - My Orders Last 24 Hours: My Active Orders 07/20/17 11:39 Code Status [Resuscitation Status] Routine 07/20/17 16:30 cefTRIAXone [Rocephin] 1 gm IVPUSH Q24H 07/20/17 17:00 Azithromycin [Zithromax] 500 mg Sodium Chloride 0.9% [Normal Saline] 250 ml IV Q24H - Plan Plan:: HISTORY OF PRESENT ILLNESS 71-year-old female was admitted through the ED department due to fever shortness of breath. She states she has been having some upper respiratory bronchitis like symptoms for about 2 weeks, fever chills yesterday feels better today. Yesterday on admission she noticed a significant puritic rash on her chest abdomen. She stated this rash was quite significant on her left thigh about one month ago--spontaneously resolved however now with on her left leg back and left breast. significant ED findings white count 20,000 Lactic acid 2.2 (likely before hydration) UTI, however asymptomatic Chest x-ray,mild interstitial bilateral infiltrates, possible PA and lateral, negative influenza Rocephin and Zithromax Patient progress today, clinically responding to treatment, rash slightly receding, Tmax 99.1, MAP good, RR normal, off O2 now, white count trending positively, decreasing neutrophilia, favorable monocytosis, feeling a lot better other than left-sided temporal headache. Primary Impression: Pneumonia, CAP, POA, likely strep, although positive blood cultures gram- positive cocci both anaerobic and aerobic will continue with course of treatment for now since she is improving clinically, definitive ABX changed will be determined on BC surveillance. If Strep will remove azithromycin, Hold TNF for her CML, although unlikely contributory. Bacteremia, lactic acid slightly high before hydration on admission. MAP adequate, in the setting of infection qSOFA now 0/3. BC surveillance, afebrile, Anemia, not present on admission, normocytic normochromic, likely WBC > RBC stem -cell production, infection related. HX CML Rash, RLL, back, left breast, confluent, does not appear to be cellulitis, improved approximately 25%, Hold TNF but doubtful contributory. conservative tx for now with monitoring. Likely hyper-inflammatory response d/t infection Thrombocytosis, reactive, likely Neutrophilia, decreasing Monocytosis, favorable trend in light of infection Headache, left temporal, ESR today, due to infection likely elevated--notify if above 70, Tylenol for now. We'll monitor. Doubtful if GCA Hyponatremia, hypotonic, improved. Urinary tract infection, uncomplicated, asymptomatic. Likely cross covered Chronic myelogenous leukemia, (CML) dx 2006, followed by oncologist, will hold TNF, restart in a few days DVT prophylaxis, LMWH added. other chronic conditions hiatal hernia Obesity Osteopenia Gastric bypass, on vitamin B12 supplementation history of laminectomy, chronic back pain, spondylolisthesis, On COT, MEDD 60mg. Disposition/overall plan/discharge planning, continue inpatient status, continue current IV ABX, saline lock IV, monitor rash, BC surveillance, discussed with patient regarding the need for approximately 5 total days on blood culture surveillance--awaiting ID sensitivity and organism from [facility] however clinically responding. Will consider ECHO o/p due to histories of flash fevers at home with unknown etiology
[2017-07-21] MEDS: Enoxaparin 40 MG/0.4 ML Syringe SUBCUT SCH (11:42)
[2017-07-21] MEDS: cefTRIAXone 1 GM Vial IVPUSH SCH (16:57)
[2017-07-21] MEDS: Azithromycin 500 MG in Sodium Chloride 0.9% 250 ML IV SCH (17:02)
[2017-07-21] MEDS: oxyCODONE ER 10 MG TAB.ER PO SCH (21:07)
[2017-07-21] MEDS: LORazepam 0.5 MG Tab PO SCH (21:07)
[2017-07-22] MEDS: Sodium Chloride 0.9% 5 ML Syringe FLUSH PRN ×3 (02:30→21:03)
[2017-07-22] MEDS: Acetaminophen 500 MG Tab PO PRN ×2 (04:15→22:50)
[2017-07-22] MEDS: Ferrous Sulfate 325 MG Tab PO SCH (08:43)
[2017-07-22] MEDS: Cholecalciferol (Vitamin D3) 1,000 Unit Tab PO SCH (08:44)
[2017-07-22] MEDS: Enoxaparin 40 MG/0.4 ML Syringe SUBCUT SCH (08:44)
[2017-07-22] MEDS: Cyanocobalamin (Vitamin B12) 500 MCG Tab PO SCH (08:44)
[2017-07-22 08:48] LABS: CHLORIDE,CL 103 mmol/L (98-115); SODIUM,NA 139 mmol/L (136-145)
[2017-07-22] MEDS ORDERED: Potassium Chloride 20 MEQ Tab.ER PO ONE (11:24)
--- NOTE | 2017-07-22 11:30 | PCM.PN ---
- General Info Date of Service: 07/22/17 Subjective Update: Ms. Salgado reports ongoing improvement today. Breathing, in particular, continues to improve. Rash is less red, has receded, and is not painful or itchy. Reports overall poor appetite and constipation, but no abdominal pain or nausea. No other new concerns, and in particular denies fever, chills, chest pain, shortness of breath, headache, or other skin changes. - Patient Data Vitals - Most Recent: Last Vital Signs Temp 37.1 C 07/22/17 06:18 Pulse 89 07/22/17 06:18 Resp 20 07/22/17 06:18 BP 114/59 L 07/22/17 06:18 Pulse Ox 96 07/22/17 07:47 Weight - Most Recent: 120.259 kg I&O - Last 24 Hours: Intake & Output 07/21/17 07/22/17 07/22/17 22:59 06:59 14:59 Intake Total 1000 550 Output Total 500 300 Balance 500 250 Lab Results Last 24 Hours: Laboratory Results - last 24 hr 07/21/17 07/22/17 07/22/17 Range/Units 07:10 08:25 08:25 WBC 9.8 (5.0-10.0) 10^3/uL RBC 3.67 L (3.80-5.50) 10^6/uL Hgb 11.0 L (12.0-16.0) g/dL Hct 32.4 L (37.0-47.0) % MCV 88.2 (82.0-92.0) fL MCH 30.0 (27.0-31.0) pg MCHC 34.0 (32.0-36.0) g/dL RDW 13.6 (11.5-14.5) % Plt Count 378 H (150-300) 10^3/uL MPV 7.9 (7.4-10.4) fL Neut % (Auto) 80.6 H (50.0-70.0) % Lymph % (Auto) 12.5 L (20.0-40.0) % [place] % (Auto) 5.2 (2.0-8.0) % Eos % (Auto) 1.3 (1.0-3.0) % Baso % (Auto) 0.4 (0.0-1.0) % Neut # (Auto) 8.0 H (2.5-7.0) 10^3/uL Lymph # (Auto) 1.2 (1.0-4.0) 10^3/uL [place] # (Auto) 0.5 (0.1-0.8) 10^3/uL Eos # (Auto) 0.1 (0.1-0.3) 10^3/uL Baso # (Auto) 0.0 (0.0-0.1) 10^3/uL ESR 100 H (0-20) mm/hr Sodium 139 (136-145) mmol/L Potassium 3.2 L (3.3-5.3) mmol/L Chloride 103 (98-115) mmol/L Carbon Dioxide 25.4 (21.0-32.0) mmol/L BUN 12 (6-25) mg/dL Creatinine 0.64 (0.51-1.17) mg/dL Est Cr Clr Drug Dosing 77.66 mL/min Estimated GFR (MDRD) > 60 mL/min Glucose 145 H (70-110) mg/dL Calcium 8.6 L (8.7-10.3) mg/dL Rj Results Last 24 Hours: Microbiology 07/19/17 18:45 Urine Culture - Final Urine, Voided NO GROWTH AFTER 2 DAYS Med Orders - Current: Current Medications Acetaminophen (Tylenol Extra Strength) 1,000 mg PO Q4H PRN PRN Reason: Fever Last Admin: 07/22/17 04:15 Dose: 1,000 mg Ceftriaxone Sodium (Rocephin) 1 gm IVPUSH Q24H [facility] Last Admin: 07/21/17 16:57 Dose: 1 gm Cholecalciferol (Vitamin D3) 2,000 units PO DAILY [facility] Last Admin: 07/22/17 08:44 Dose: 2,000 units Cyanocobalamin (Vitamin B12) 500 mcg PO DAILY [facility] Last Admin: 07/22/17 08:44 Dose: 500 mcg Enoxaparin Sodium (Lovenox) 40 mg SUBCUT DAILY [facility] Last Admin: 07/22/17 08:44 Dose: 40 mg Ferrous Sulfate (Ferrous Sulfate) 325 mg PO DAILY [facility] Last Admin: 07/22/17 08:43 Dose: 325 mg Azithromycin 500 mg/ Sodium (Chloride) 250 mls @ 250 mls/hr IV Q24H [facility] Last Admin: 07/21/17 17:02 Dose: 250 mls/hr Sodium Chloride (Normal Saline) 100 mls @ 100 mls/hr IV ASDIRECTED [facility] Lorazepam (Ativan) 0.5 mg PO BEDTIME [facility] Last Admin: 07/21/17 21:07 Dose: 0.5 mg (Dasatinib [Sprycel] (100 Mg)*Pt Own Med*) 100 mg PO BEDTIME [facility] Last Admin: 07/19/17 20:08 Dose: 100 mg (Etodolac [Etodolac] (500 Mg)*Pt Own Med*) 500 mg PO DAILY [facility] Last Admin: 07/22/17 08:43 Dose: 500 mg Oxycodone HCl (Oxycontin) 20 mg PO BEDTIME [facility] Last Admin: 07/21/17 21:07 Dose: 20 mg Ranitidine HCl (Zantac) 150 mg PO BIDAC [facility] Last Admin: 07/22/17 07:37 Dose: 150 mg Sodium Chloride (Syrex Flush) 5 ml FLUSH Q8HR PRN PRN Reason: Keep Vein Open Last Admin: 07/22/17 02:30 Dose: 5 ml Triamcinolone Acetonide (Triamcinolone Acetonide 0.1% Oint) 0.5 gm TOP BID PRN PRN Reason: Itching Last Admin: 07/21/17 22:15 Dose: 1 applic Discontinued Medications Acetaminophen (Tylenol) 650 mg PO NOW ONE Stop: 07/19/17 15:45 Last Admin: 07/19/17 16:00 Dose: 650 mg Ceftriaxone Sodium (Rocephin) 1 gm IVPUSH ONETIME ONE Stop: 07/19/17 17:21 Last Admin: 07/19/17 17:27 Dose: 1 gm Diphenhydramine HCl (Benadryl) 25 mg PO ONETIME ONE Stop: 07/20/17 05:45 Last Admin: 07/20/17 06:05 Dose: 25 mg Sodium Chloride (Normal Saline) 500 mls @ 999 mls/hr IV .BOLUS ONE Stop: 07/19/17 16:09 Last Infusion: 07/19/17 16:29 Dose: Infused Sodium Chloride (Normal Saline) 500 mls @ 500 mls/hr IV ASDIRECTED [facility] Last Admin: 07/19/17 16:53 Dose: 500 mls/hr Sodium Chloride (Normal Saline) Confirm Administered Dose 500 mls @ as directed .ROUTE .STK-MED ONE Stop: 07/19/17 16:46 Last Admin: 07/19/17 16:50 Dose: Not Given Azithromycin 500 mg/ Sodium (Chloride) 250 mls @ 250 mls/hr IV ONETIME ONE Stop: 07/19/17 18:19 Last Admin: 07/19/17 18:05 Dose: 250 mls/hr Dextrose/Sodium Chloride (Dextrose 5%-1/2 Ns) 1,000 mls @ 75 mls/hr IV ASDIRECTED [facility] Dextrose/Sodium Chloride (Dextrose 5%-1/2 Ns) 1,000 mls @ 50 mls/hr IV ASDIRECTED [facility] Last Admin: 07/20/17 14:59 Dose: 50 mls/hr Ibuprofen (Motrin) 600 mg PO ONETIME ONE Stop: 07/19/17 19:03 Last Admin: 07/19/17 19:08 Dose: 600 mg Methylprednisolone Sodium Succinate (Solu-Medrol) 40 mg IVPUSH ONETIME ONE Stop: 07/20/17 05:50 Last Admin: 07/20/17 06:05 Dose: 40 mg Ondansetron HCl (Zofran) 4 mg IVPUSH ONETIME ONE Stop: 07/19/17 15:43 Last Admin: 07/19/17 15:58 Dose: 4 mg Potassium Chloride (Klor-Con M20) 40 meq PO ONETIME ONE Stop: 07/22/17 11:25 Ranitidine HCl (Zantac) 150 mg PO BID [facility] Last Admin: 07/20/17 09:59 Dose: 150 mg Sodium Chloride (Syrex Flush) 5 ml FLUSH Q8HR PRN PRN Reason: Keep Vein Open - Exam Physical Findings Comments:: GENERAL: Well-appearing adult female lying in hospital bed in no acute distress. HEENT: Normocephalic, atraumatic. Conjunctiva clear. Nares patent without discharge. Mucous membranes moist. CV: Regular rate and rhythm, no murmurs, rubs, or gallops. 2+ radial pulses. PULMONARY: Normal effort, clear to auscultation bilaterally, no wheezes, rales, or rhonchi. ABDOMEN: Positive bowel sounds, soft, nontender, nondistended, no hepatosplenomegaly. EXTREMITIES: No edema, cyanosis, or clubbing. MUSCULOSKELETAL: Moves all extremities well. NEUROLOGICAL: No obvious deficits. DERMATOLOGIC: R thigh and L breast with diffuse erythema within markings. Remainder of extremities and torso without rash. No petechiae, splinter hemorrhages, or subcutaneous nodules. PSYCHIATRIC: Alert, interactive, appropriate affect. - Problem List Review Problem List Initiated/Reviewed/Updated: Yes - My Orders Last 24 Hours: My Active Orders 07/22/17 11:29 Vital Signs [RC] Q8H 07/22/17 17:30 Sodium Chloride 0.9% [Normal Saline] 100 ml IV ASDIRECTED 07/23/17 05:11 BASIC METABOLIC PANEL,BMP [CHEM] AM CBC WITH AUTO DIFF [HEME] AM ESR [SEDIMENTATION RATE MANUAL] [HEME] AM - Plan Plan:: 71yoF with history notable for CML admitted for pneumonia following presentation with fever and worsening respiratory symptoms which started 2 weeks prior, and worsening pruritic rash for which she had a month prior as well. Workup revealed WBC 20, lactate 2.2, CXR with mild bilateral interstitial infiltrates vs. edema, and negative influenza testing. She was started on ceftriaxone and azithromycin. # Pneumonia, community acquired: Presentation as above. Likely streptococcal. Ongoing clinical and laboratory improvement. Awaiting definitive cultures before de-escalating antibiotics. # Bacteremia: Lactic acid 2.2 on admission before hydration. Afebrile since at 1900. Awaiting definitive cultures before de-escalating antibitoics. Plan for echo next week given recurrent fevers; reassuring clinical status without murmur or other findings of infective endocarditis. # Rash: RLL, back, left breast. Thought to be hyperinflammatory response related to infection. CML with possible contribution and holding TNF. Improving. Continue monitoring. # Neutrophilia: Improving. # Anemia, normocytic normochromic: Not present on admission. Likely infection related with WBC > RBC stem-cell production. Improving. # Thrombocytosis: Likely reactive. Improving. # Asymptomatic bacteruria: No indication for treatment, though likely covered by abx for pneumonia. # Chronic myelogenous leukemia: Dx 2006, followed by oncology. Holding TNF; plan to restart in the coming days if ongoing clinical improvement. Other chronic conditions: # Obesity # Osteopenia: Ca/D. # Hx gastric bypass: Vitamin B12 supplementation. # Hx laminectomy, spondylolisthesis, and chronic back pain: Oxycodone (MEDD 60mg ). Hospitalization details: # FEN: No IVF. Electrolytes normal; recheck tomorrow. Regular diet. # PPX: Enoxaparin for DVT ppx. # Code status: DNR/DNI. # Emergency contact: , Luis. # Disposition: Continue on inpatient with plan to discharge to home in 1-2 days following ongoing clinical improvement and definitive blood culture results.
[2017-07-22] MEDS ORDERED: Polyethylene Glycol 3350 Powder 17 GM Packet PO PRN (11:49)
[2017-07-22] MEDS: cefTRIAXone 1 GM Vial IVPUSH SCH (16:12)
[2017-07-22] MEDS: Azithromycin 500 MG in Sodium Chloride 0.9% 250 ML IV SCH (16:32)
[2017-07-22] MEDS: Triamcinolone Acetonide 0.1% Oint 15 GM Tube TOP PRN (16:37)
[2017-07-22] MEDS ORDERED: Sodium Chloride 0.9% 100 ML IV SCH (17:30)
[2017-07-22] MEDS: oxyCODONE ER 10 MG TAB.ER PO SCH (21:02)
[2017-07-22] MEDS: LORazepam 0.5 MG Tab PO SCH (21:02)
[2017-07-23 08:15] LABS: CHLORIDE,CL 104 mmol/L (98-115); SODIUM,NA 139 mmol/L (136-145)
[2017-07-23] MEDS: Sodium Chloride 0.9% 5 ML Syringe FLUSH PRN ×2 (08:46→16:19)
[2017-07-23] MEDS: Ferrous Sulfate 325 MG Tab PO SCH (08:47)
[2017-07-23] MEDS: Cholecalciferol (Vitamin D3) 1,000 Unit Tab PO SCH (08:47)
[2017-07-23] MEDS: Cyanocobalamin (Vitamin B12) 500 MCG Tab PO SCH (08:47)
[2017-07-23] MEDS: Enoxaparin 40 MG/0.4 ML Syringe SUBCUT SCH (08:48)
--- NOTE | 2017-07-23 16:06 | PCM.PN ---
- General Info Date of Service: 07/23/17 Subjective Update: Ms. Salgado reports ongoing improvement today. Minimal cough and no shortness of breath. Rash continues to be less red, has receded, and is not painful or itchy. Reports overall fatigue. Has not been ambulating more than going to the bathroom. Constipation resolved with Miralax yesterday. No other new concerns, and in particular denies fever, chills, headache, chest pain, abdominal pain, nausea, or new skin changes. - Patient Data Vitals - Most Recent: Last Vital Signs Temp 37.1 C 07/23/17 14:15 Pulse 78 07/23/17 14:15 Resp 14 07/23/17 14:15 BP 152/81 H 07/23/17 14:15 Pulse Ox 97 07/23/17 14:15 Weight - Most Recent: 120.259 kg I&O - Last 24 Hours: Intake & Output 07/23/17 07/23/17 07/23/17 06:59 14:59 22:59 Intake Total 400 665 Output Total 300 850 Balance 100 -185 Lab Results Last 24 Hours: Laboratory Results - last 24 hr 07/23/17 07/23/17 Range/Units 07:37 07:37 WBC 8.3 (5.0-10.0) 10^3/uL RBC 3.54 L (3.80-5.50) 10^6/uL Hgb 10.3 L (12.0-16.0) g/dL Hct 31.7 L (37.0-47.0) % MCV 89.6 (82.0-92.0) fL MCH 29.1 (27.0-31.0) pg MCHC 32.4 (32.0-36.0) g/dL RDW 13.3 (11.5-14.5) % Plt Count 404 H (150-300) 10^3/uL MPV 7.4 (7.4-10.4) fL Neut % (Auto) 73.2 H (50.0-70.0) % Lymph % (Auto) 13.3 L (20.0-40.0) % [place] % (Auto) 10.9 H (2.0-8.0) % Eos % (Auto) 2.1 (1.0-3.0) % Baso % (Auto) 0.5 (0.0-1.0) % Neut # (Auto) 6.1 (2.5-7.0) 10^3/uL Lymph # (Auto) 1.1 (1.0-4.0) 10^3/uL [place] # (Auto) 0.9 H (0.1-0.8) 10^3/uL Eos # (Auto) 0.2 (0.1-0.3) 10^3/uL Baso # (Auto) 0.0 (0.0-0.1) 10^3/uL ESR 101 H (0-20) mm/hr Sodium 139 (136-145) mmol/L Potassium 3.4 (3.3-5.3) mmol/L Chloride 104 (98-115) mmol/L Carbon Dioxide 24.7 (21.0-32.0) mmol/L BUN 8 (6-25) mg/dL Creatinine 0.54 (0.51-1.17) mg/dL Est Cr Clr Drug Dosing 92.05 mL/min Estimated GFR (MDRD) > 60 mL/min Glucose 98 (70-110) mg/dL Calcium 8.3 L (8.7-10.3) mg/dL Rj Results Last 24 Hours: Microbiology 07/19/17 18:45 Urine Culture - Final Urine, Voided NO GROWTH AFTER 2 DAYS Med Orders - Current: Current Medications Acetaminophen (Tylenol Extra Strength) 1,000 mg PO Q4H PRN PRN Reason: Fever Last Admin: 07/22/17 22:50 Dose: 1,000 mg Ceftriaxone Sodium (Rocephin) 1 gm IVPUSH Q24H [facility] Last Admin: 07/22/17 16:12 Dose: 1 gm Cholecalciferol (Vitamin D3) 2,000 units PO DAILY [facility] Last Admin: 07/23/17 08:47 Dose: 2,000 units Cyanocobalamin (Vitamin B12) 500 mcg PO DAILY [facility] Last Admin: 07/23/17 08:47 Dose: 500 mcg Enoxaparin Sodium (Lovenox) 40 mg SUBCUT DAILY [facility] Last Admin: 07/23/17 08:48 Dose: 40 mg Ferrous Sulfate (Ferrous Sulfate) 325 mg PO DAILY [facility] Last Admin: 07/23/17 08:47 Dose: 325 mg Sodium Chloride (Normal Saline) 100 mls @ 100 mls/hr IV 1700 [facility] Last Admin: 07/23/17 16:03 Dose: Not Given Lorazepam (Ativan) 0.5 mg PO BEDTIME [facility] Last Admin: 07/22/17 21:02 Dose: 0.5 mg (Dasatinib [Sprycel] (100 Mg)*Pt Own Med*) 100 mg PO BEDTIME [facility] Last Admin: 07/19/17 20:08 Dose: 100 mg (Etodolac [Etodolac] (500 Mg)*Pt Own Med*) 500 mg PO DAILY [facility] Last Admin: 07/23/17 08:47 Dose: 500 mg Oxycodone HCl (Oxycontin) 20 mg PO BEDTIME [facility] Last Admin: 07/22/17 21:02 Dose: 20 mg Polyethylene Glycol (Miralax) 17 gm PO DAILY PRN PRN Reason: Constipation Ranitidine HCl (Zantac) 150 mg PO BIDAC [facility] Last Admin: 07/23/17 07:29 Dose: 150 mg Sodium Chloride (Syrex Flush) 5 ml FLUSH Q8HR PRN PRN Reason: Keep Vein Open Last Admin: 07/23/17 08:46 Dose: 5 ml Triamcinolone Acetonide (Triamcinolone Acetonide 0.1% Oint) 0.5 gm TOP BID PRN PRN Reason: Itching Last Admin: 07/22/17 16:37 Dose: 1 applic Discontinued Medications Acetaminophen (Tylenol) 650 mg PO NOW ONE Stop: 07/19/17 15:45 Last Admin: 07/19/17 16:00 Dose: 650 mg Ceftriaxone Sodium (Rocephin) 1 gm IVPUSH ONETIME ONE Stop: 07/19/17 17:21 Last Admin: 07/19/17 17:27 Dose: 1 gm Diphenhydramine HCl (Benadryl) 25 mg PO ONETIME ONE Stop: 07/20/17 05:45 Last Admin: 07/20/17 06:05 Dose: 25 mg Sodium Chloride (Normal Saline) 500 mls @ 999 mls/hr IV .BOLUS ONE Stop: 07/19/17 16:09 Last Infusion: 07/19/17 16:29 Dose: Infused Sodium Chloride (Normal Saline) 500 mls @ 500 mls/hr IV ASDIRECTED [facility] Last Admin: 07/19/17 16:53 Dose: 500 mls/hr Sodium Chloride (Normal Saline) Confirm Administered Dose 500 mls @ as directed .ROUTE .STK-MED ONE Stop: 07/19/17 16:46 Last Admin: 07/19/17 16:50 Dose: Not Given Azithromycin 500 mg/ Sodium (Chloride) 250 mls @ 250 mls/hr IV ONETIME ONE Stop: 07/19/17 18:19 Last Admin: 07/19/17 18:05 Dose: 250 mls/hr Dextrose/Sodium Chloride (Dextrose 5%-1/2 Ns) 1,000 mls @ 75 mls/hr IV ASDIRECTED [facility] Dextrose/Sodium Chloride (Dextrose 5%-1/2 Ns) 1,000 mls @ 50 mls/hr IV ASDIRECTED [facility] Last Admin: 07/20/17 14:59 Dose: 50 mls/hr Azithromycin 500 mg/ Sodium (Chloride) 250 mls @ 250 mls/hr IV Q24H [facility] Last Admin: 07/22/17 16:32 Dose: 250 mls/hr Sodium Chloride (Normal Saline) 100 mls @ 100 mls/hr IV ASDIRECTED [facility] Ibuprofen (Motrin) 600 mg PO ONETIME ONE Stop: 07/19/17 19:03 Last Admin: 07/19/17 19:08 Dose: 600 mg Methylprednisolone Sodium Succinate (Solu-Medrol) 40 mg IVPUSH ONETIME ONE Stop: 07/20/17 05:50 Last Admin: 07/20/17 06:05 Dose: 40 mg Ondansetron HCl (Zofran) 4 mg IVPUSH ONETIME ONE Stop: 07/19/17 15:43 Last Admin: 07/19/17 15:58 Dose: 4 mg Potassium Chloride (Klor-Con M20) 40 meq PO ONETIME ONE Stop: 07/22/17 11:25 Last Admin: 07/22/17 11:44 Dose: 40 meq Ranitidine HCl (Zantac) 150 mg PO BID [facility] Last Admin: 07/20/17 09:59 Dose: 150 mg Sodium Chloride (Syrex Flush) 5 ml FLUSH Q8HR PRN PRN Reason: Keep Vein Open - Exam Physical Findings Comments:: GENERAL: Well-appearing adult female lying in hospital bed in no acute distress. HEENT: Normocephalic, atraumatic. Conjunctiva clear. Nares patent without discharge. Mucous membranes moist. CV: Regular rate and rhythm, no murmurs, rubs, or gallops. 2+ radial pulses. PULMONARY: Normal effort, clear to auscultation bilaterally, no wheezes, rales, or rhonchi. ABDOMEN: Positive bowel sounds, soft, nontender, nondistended, no hepatosplenomegaly. EXTREMITIES: No edema, cyanosis, or clubbing. MUSCULOSKELETAL: Moves all extremities well. NEUROLOGICAL: No obvious deficits. DERMATOLOGIC: R thigh and L breast with diffuse erythema within markings. Remainder of extremities and torso without rash. No petechiae, splinter hemorrhages, or subcutaneous nodules. PSYCHIATRIC: Alert, interactive, appropriate affect. - Problem List Review Problem List Initiated/Reviewed/Updated: Yes - My Orders Last 24 Hours: My Active Orders 07/23/17 12:15 CULTURE BLOOD [BC] Routine 07/23/17 12:25 CULTURE BLOOD [BC] Routine 07/23/17 17:00 Sodium Chloride 0.9% [Normal Saline] 100 ml IV 1700 07/24/17 05:11 BASIC METABOLIC PANEL,BMP [CHEM] AM CBC WITH AUTO DIFF [HEME] AM SEDIMENTATION RATE MANUAL [HEME] AM - Plan Plan:: 71yoF with history notable for CML admitted for pneumonia following presentation with fever and worsening respiratory symptoms which started 2 weeks prior, and worsening diffuse pruritic rash for which she had a month prior and spontaneously resolved. Workup was notable for WBC 20, lactate 2.2, CXR with mild bilateral interstitial infiltrates vs. edema, and negative influenza testing. She was admitted for pneumonia and started on ceftriaxone and azithromycin. Blood cultures became positive with Group C Streptococcus. She has continued to make steady clinical improvement. # Pneumonia, community acquired: Presentation as above. Streptococcal. Ongoing clinical and laboratory improvement. No further respiratory compromise. See antibiotic adjustments below. # Bacteremia: Lactic acid 2.2 on admission before hydration. Afebrile since at 1900. Both cultures growing pansensitive Group C Streptococcus. Repeat cultures obtained. Discontinue azithromycin. Plan to change to oral regimen of penicillin tomorrow to complete 14 day course of antibiotics following 5 days of IV antibiotics. Will obtain echo next week given recurrent fevers and possibility of endocarditis, though reassuring clinical status without murmur or other vascular or immunologic findings. If evidence of endocarditis, would need to extend treatment course to at least 28 days. # Rash: RLE, back, left breast. Thought to be hyperinflammatory response related to infection, but may be infectious in the setting of the Group C Streptococcus on blood culture. CML with possible contribution and holding Sprycel. Improving. Continue monitoring. # Neutrophilia: Improving. # Anemia, normocytic normochromic: Not present on admission. Likely infection related with WBC > RBC stem-cell production. Stable. # Thrombocytosis: Likely reactive. Stable. # Asymptomatic bacteruria: No indication for treatment, though likely covered by abx as above. # Chronic myelogenous leukemia: Dx 2006, followed by oncology. Holding Sprycel; plan to restart at discharge. # Debility: Minimal physical activity during hospitalization thus far. Encouraged ambulation with nursing today. If poor tolerance, will consult physical therapy tomorrow. Other chronic conditions: # GERD: Ranitidine. # Obesity # Hx gastric bypass: Vitamin B12, iron. # Osteopenia: Ca/D. # Hx laminectomy, spondylolisthesis, and chronic back pain: Oxycodone (MEDD 60mg ), etodolac, Tylenol prn. # Anxiety: Lorazepam prn. Hospitalization details: # FEN: No IVF. Electrolytes normal; recheck tomorrow. Regular diet. # PPX: Enoxaparin for DVT ppx. # Code status: DNR/DNI. # Emergency contact: , Luis. # Disposition: Continue on inpatient with plan to discharge to home tomorrow following 5 day IV antibiotic course for bacteremia.
[2017-07-23] MEDS: cefTRIAXone 1 GM Vial IVPUSH SCH (16:19)
[2017-07-23] MEDS ORDERED: Sodium Chloride 0.9% 100 ML IV SCH (17:00)
[2017-07-23] MEDS: oxyCODONE ER 10 MG TAB.ER PO SCH (21:49)
[2017-07-23] MEDS: LORazepam 0.5 MG Tab PO SCH (21:49)
[2017-07-23] MEDS: Acetaminophen 500 MG Tab PO PRN (21:53)
[2017-07-24 07:16] VITALS: BP 148/70
[2017-07-24] MEDS: Sodium Chloride 0.9% 5 ML Syringe FLUSH PRN (07:24)
[2017-07-24 07:55] LABS: CHLORIDE,CL 105 mmol/L (98-115); SODIUM,NA 140 mmol/L (136-145)
[2017-07-24] MEDS: Ferrous Sulfate 325 MG Tab PO SCH (08:22)
[2017-07-24] MEDS: Cholecalciferol (Vitamin D3) 1,000 Unit Tab PO SCH (08:22)
[2017-07-24] MEDS: Cyanocobalamin (Vitamin B12) 500 MCG Tab PO SCH (08:22)
[2017-07-24] MEDS: Enoxaparin 40 MG/0.4 ML Syringe SUBCUT SCH (08:23)
[2017-07-24] MEDS ORDERED: Potassium Chloride 20 MEQ Tab.ER PO ONE (09:30)
--- NOTE | 2017-07-24 09:31 | PCM.DCSUM1 ---
Discharge Summary - Discharge Data Discharge Disposition: Home, Self-Care 01 Condition: Good - Discharge Plan Home Medications: Home Meds Dasatinib [Sprycel] 100 mg PO BEDTIME 06/14/16 [History] Etodolac [Etodolac] 500 mg PO DAILY 06/14/16 [History] LORazepam [Ativan] 0.5 mg PO BEDTIME 06/14/16 [History] oxyCODONE ER [OxyCONTIN] 20 mg PO BEDTIME 06/14/16 [History] Cholecalciferol (Vitamin D3) [Vitamin D3] 2,000 units PO DAILY 07/19/17 [History ] Cyanocobalamin (Vitamin B12) [Vitamin B12] 500 mcg PO DAILY 07/19/17 [History] Ferrous Sulfate 325 mg PO DAILY 07/19/17 [History] Multivitamin [Multivitamins] 1 cap PO DAILY 07/19/17 [History] Ranitidine HCl [Ranitidine] 150 mg PO BIDAC 07/19/17 [History] Triamcinolone Acetonide [Triamcinolone Acetonide 0.025% Crm] 1 applic TOP DAILY PRN 07/20/17 [History] Forms: ED Department Discharge Referrals: PCP,Unobtain [Ordering Only Provider] - - Patient Data Vitals - Most Recent: Last Vital Signs Temp 36.9 C 07/24/17 07:00 Pulse 78 07/24/17 07:00 Resp 18 07/24/17 07:00 BP 148/70 H 07/24/17 07:00 Pulse Ox 97 07/24/17 08:15 Weight - Most Recent: 120.259 kg I&O - Last 24 hours: Intake & Output 07/23/17 07/24/17 07/24/17 22:59 06:59 14:59 Intake Total 800 250 Output Total 800 1000 Balance 0 -750 Lab Results - Last 24 hrs: Laboratory Results - last 24 hr 07/24/17 07/24/17 Range/Units 07:10 07:10 WBC 7.5 (5.0-10.0) 10^3/uL RBC 3.60 L (3.80-5.50) 10^6/uL Hgb 10.6 L (12.0-16.0) g/dL Hct 32.0 L (37.0-47.0) % MCV 88.8 (82.0-92.0) fL MCH 29.5 (27.0-31.0) pg MCHC 33.3 (32.0-36.0) g/dL RDW 13.6 (11.5-14.5) % Plt Count 424 H (150-300) 10^3/uL MPV 7.3 L (7.4-10.4) fL Neut % (Auto) 64.9 (50.0-70.0) % Lymph % (Auto) 18.4 L (20.0-40.0) % [place] % (Auto) 12.8 H (2.0-8.0) % Eos % (Auto) 3.5 H (1.0-3.0) % Baso % (Auto) 0.4 (0.0-1.0) % Neut # (Auto) 4.8 (2.5-7.0) 10^3/uL Lymph # (Auto) 1.4 (1.0-4.0) 10^3/uL [place] # (Auto) 1.0 H (0.1-0.8) 10^3/uL Eos # (Auto) 0.3 (0.1-0.3) 10^3/uL Baso # (Auto) 0.0 (0.0-0.1) 10^3/uL ESR 96 H (0-20) mm/hr Sodium 140 (136-145) mmol/L Potassium 3.2 L (3.3-5.3) mmol/L Chloride 105 (98-115) mmol/L Carbon Dioxide 27.0 (21.0-32.0) mmol/L BUN 7 (6-25) mg/dL Creatinine 0.59 (0.51-1.17) mg/dL Est Cr Clr Drug Dosing 84.25 mL/min Estimated GFR (MDRD) > 60 mL/min Glucose 102 (70-110) mg/dL Calcium 8.5 L (8.7-10.3) mg/dL Med Orders - Current: Current Medications Acetaminophen (Tylenol Extra Strength) 1,000 mg PO Q4H PRN PRN Reason: Fever Last Admin: 07/23/17 21:53 Dose: 1,000 mg Ceftriaxone Sodium (Rocephin) 1 gm IVPUSH Q24H [facility] Last Admin: 07/23/17 16:19 Dose: 1 gm Cholecalciferol (Vitamin D3) 2,000 units PO DAILY [facility] Last Admin: 07/24/17 08:22 Dose: 2,000 units Cyanocobalamin (Vitamin B12) 500 mcg PO DAILY [facility] Last Admin: 07/24/17 08:22 Dose: 500 mcg Enoxaparin Sodium (Lovenox) 40 mg SUBCUT DAILY [facility] Last Admin: 07/24/17 08:23 Dose: 40 mg Ferrous Sulfate (Ferrous Sulfate) 325 mg PO DAILY [facility] Last Admin: 07/24/17 08:22 Dose: 325 mg Sodium Chloride (Normal Saline) 100 mls @ 100 mls/hr IV 1700 [facility] Last Admin: 07/23/17 16:03 Dose: Not Given Lorazepam (Ativan) 0.5 mg PO BEDTIME [facility] Last Admin: 07/23/17 21:49 Dose: 0.5 mg (Dasatinib [Sprycel] (100 Mg)*Pt Own Med*) 100 mg PO BEDTIME [facility] Last Admin: 07/23/17 21:52 Dose: Not Given (Etodolac [Etodolac] (500 Mg)*Pt Own Med*) 500 mg PO DAILY [facility] Last Admin: 07/24/17 08:23 Dose: 500 mg Oxycodone HCl (Oxycontin) 20 mg PO BEDTIME [facility] Last Admin: 07/23/17 21:49 Dose: 20 mg Polyethylene Glycol (Miralax) 17 gm PO DAILY PRN PRN Reason: Constipation Potassium Chloride (Klor-Con M20) 40 meq PO ONETIME ONE Stop: 07/24/17 09:31 Ranitidine HCl (Zantac) 150 mg PO BIDAC [facility] Last Admin: 07/24/17 07:24 Dose: 150 mg Sodium Chloride (Syrex Flush) 5 ml FLUSH Q8HR PRN PRN Reason: Keep Vein Open Last Admin: 07/24/17 07:24 Dose: 5 ml Triamcinolone Acetonide (Triamcinolone Acetonide 0.1% Oint) 0.5 gm TOP BID PRN PRN Reason: Itching Last Admin: 07/22/17 16:37 Dose: 1 applic Discontinued Medications Acetaminophen (Tylenol) 650 mg PO NOW ONE Stop: 07/19/17 15:45 Last Admin: 07/19/17 16:00 Dose: 650 mg Ceftriaxone Sodium (Rocephin) 1 gm IVPUSH ONETIME ONE Stop: 07/19/17 17:21 Last Admin: 07/19/17 17:27 Dose: 1 gm Diphenhydramine HCl (Benadryl) 25 mg PO ONETIME ONE Stop: 07/20/17 05:45 Last Admin: 07/20/17 06:05 Dose: 25 mg Sodium Chloride (Normal Saline) 500 mls @ 999 mls/hr IV .BOLUS ONE Stop: 07/19/17 16:09 Last Infusion: 07/19/17 16:29 Dose: Infused Sodium Chloride (Normal Saline) 500 mls @ 500 mls/hr IV ASDIRECTED [facility] Last Admin: 07/19/17 16:53 Dose: 500 mls/hr Sodium Chloride (Normal Saline) Confirm Administered Dose 500 mls @ as directed .ROUTE .STK-MED ONE Stop: 07/19/17 16:46 Last Admin: 07/19/17 16:50 Dose: Not Given Azithromycin 500 mg/ Sodium (Chloride) 250 mls @ 250 mls/hr IV ONETIME ONE Stop: 07/19/17 18:19 Last Admin: 07/19/17 18:05 Dose: 250 mls/hr Dextrose/Sodium Chloride (Dextrose 5%-1/2 Ns) 1,000 mls @ 75 mls/hr IV ASDIRECTED [facility] Dextrose/Sodium Chloride (Dextrose 5%-1/2 Ns) 1,000 mls @ 50 mls/hr IV ASDIRECTED [facility] Last Admin: 07/20/17 14:59 Dose: 50 mls/hr Azithromycin 500 mg/ Sodium (Chloride) 250 mls @ 250 mls/hr IV Q24H [facility] Last Admin: 07/22/17 16:32 Dose: 250 mls/hr Sodium Chloride (Normal Saline) 100 mls @ 100 mls/hr IV ASDIRECTED [facility] Ibuprofen (Motrin) 600 mg PO ONETIME ONE Stop: 07/19/17 19:03 Last Admin: 07/19/17 19:08 Dose: 600 mg Methylprednisolone Sodium Succinate (Solu-Medrol) 40 mg IVPUSH ONETIME ONE Stop: 07/20/17 05:50 Last Admin: 07/20/17 06:05 Dose: 40 mg Ondansetron HCl (Zofran) 4 mg IVPUSH ONETIME ONE Stop: 07/19/17 15:43 Last Admin: 07/19/17 15:58 Dose: 4 mg Potassium Chloride (Klor-Con M20) 40 meq PO ONETIME ONE Stop: 07/22/17 11:25 Last Admin: 07/22/17 11:44 Dose: 40 meq Ranitidine HCl (Zantac) 150 mg PO BID [facility] Last Admin: 07/20/17 09:59 Dose: 150 mg Sodium Chloride (Syrex Flush) 5 ml FLUSH Q8HR PRN PRN Reason: Keep Vein Open *Q Meaningful Use (DIS) - VTE *Q VTE Criteria *Q: - Stroke *Q Stroke Criteria *Q: - AMI *Q AMI Criteria *Q:
== END 2017-07-24 11:30 | disposition home or self-care (01) | DRG 139 ==
LOC: KA.ED 15:32 → KA.MS 17:27
PROVIDERS: ADMIT Physician Assistant Surgical; ATTEND Family Medicine
DX: J18.9 Pneumonia, unspecified organism (principal); B95.4 Other streptococcus as the cause of diseases classified elsewhere; K21.9 Gastro-esophageal reflux disease without esophagitis; F41.9 Anxiety disorder, unspecified; C92.90 Myeloid leukemia, unspecified, not having achieved remission; R78.81 Bacteremia; D64.9 Anemia, unspecified; R21 Rash and other nonspecific skin eruption; D47.3 Essential (hemorrhagic) thrombocythemia; E87.1 Hypo-osmolality and hyponatremia; N39.0 Urinary tract infection, site not specified; E53.8 Deficiency of other specified B group vitamins; R53.81 Other malaise; D72.0 Genetic anomalies of leukocytes; Z88.5 Allergy status to narcotic agent; Z79.899 Other long term (current) drug therapy; Z98.84 Bariatric surgery status
CPT/HCPCS: 36415; 71046; 80048; 80053; 81001; 83605; 83735; 83880; 84484; 85025; 85651; 87040; 87077; 87086; 87186; 87804; 93005; 96361; 96374; 96375; 99285; A9270-GY; J0456; J0696; J1650; J2405; J2930; J7040; J7042; J7050

== ENCOUNTER 2018-02-12 17:35 | Observation (INO) | payer BC, MEDICARE ==
[2018-02-12] MEDS ORDERED: Iopamidol 612 MG/ML 75 ML Bottle IV ONE (17:47)
[2018-02-12] MEDS ORDERED: Sodium Chloride 0.9% 50 ML IV SCH (18:00)
[2018-02-12] MEDS: Sodium Chloride 0.9% 1,000 ML IV SCH (18:44)
[2018-02-12] MEDS ORDERED: Ondansetron 4 MG/2 ML SDV IVPUSH PRN (18:47)
[2018-02-12] MEDS ORDERED: HYDROmorphone 2 MG/ML SDV IVPUSH PRN (18:48)
[2018-02-12] MEDS ORDERED: Magnesium Hydroxide 400 MG/5 ML Susp 30 ML Cup PO PRN (19:33)
[2018-02-12] MEDS: Naloxegol Oxalate 25 MG Tab PO SCH (19:56)
[2018-02-12] MEDS: Metoclopramide 10 MG/2 ML SDV IVPUSH SCH (19:58)
[2018-02-12] MEDS ORDERED: DASATINIB 100 MG PO SCH (21:00)
[2018-02-12] MEDS ORDERED: LORazepam 0.5 MG Tab PO SCH (21:00)
[2018-02-12] MEDS: oxyCODONE ER 10 MG TAB.ER PO SCH (22:02)
[2018-02-13] MEDS: Metoclopramide 10 MG/2 ML SDV IVPUSH SCH ×2 (01:46→07:50)
[2018-02-13] MEDS: Sodium Chloride 0.9% 1,000 ML IV SCH (03:31)
[2018-02-13] MEDS ORDERED: Lactulose Soln 10 GM/15 ML 30 ML UD Cup PO ONE (08:00)
[2018-02-13] MEDS: Naloxegol Oxalate 25 MG Tab PO SCH (08:59)
[2018-02-13] MEDS: oxyCODONE ER 10 MG TAB.ER PO SCH (08:59)
[2018-02-13 10:36] VITALS: BP 168/83
--- NOTE | 2018-02-14 11:52 | PCM.DCSUM1 ---
Discharge Summary - Hospital Course Diagnosis: Stroke: No - Discharge Data Discharge Date: 02/13/18 Discharge Disposition: Home, Self-Care 01 Condition: Good - Patient Instructions Diet: Usual Diet as Tolerated, Drink 8-10+ Glasses/Day Driving: May Drive Today Showering/Bathing: September Shower Notify Provider of: Fever, Increased Pain, Nausea and/or Vomiting Other/Special Instructions: Milk of magnesia as directed. Take 1 ounce daily until follow-up - Discharge Plan *PRESCRIPTION DRUG MONITORING PROGRAM REVIEWED*: Not Applicable *COPY OF PRESCRIPTION DRUG MONITORING REPORT IN PATIENT EB: Not Applicable Home Medications: Home Meds Dasatinib [Sprycel] 100 mg PO BEDTIME 06/14/16 [History] LORazepam [Ativan] 0.5 mg PO BEDTIME 06/14/16 [History] oxyCODONE ER [OxyCONTIN] 20 mg PO BID 06/14/16 [History] Cholecalciferol (Vitamin D3) [Vitamin D3] 2,000 units PO QAM 07/19/17 [History] Cyanocobalamin (Vitamin B12) [Vitamin B12] 500 mcg PO QAM 07/19/17 [History] Multivitamin [Multivitamins] 1 cap PO QAM 07/19/17 [History] Ranitidine HCl [Ranitidine] 150 mg PO BIDAC 07/19/17 [History] Ferrous Sulfate 325 mg PO Q48H #0 02/13/18 [Rx] Referrals: Pamela Cochran SYSTEM SAFETY MANAGER [Primary Care Provider] - (Late this week) - Discharge Summary/Plan Comment DC Time >30 min.: Yes Discharge Summary/Plan Comment: Final diagnosis Constipation, improving Impression deformity, mild, DDD, s/p fusion Brief history Patti is a 72-year-old pleasant female who was admitted by Pamela Cochran NP [facility] due to ongoing constant epigastric and back pain. When she reported to the [facility] she was complaining of about days of 5 sharp pains in her abdominal and back regions anorexia disturbed sleep. Though she did deny any constipation there is some evidence of bowel stool burden. She has taken Oxycontin twice a day without relief. Labs at [facility] on previous workup dated February 09 was unremarkable. Hx of appendectomy, cholecystectomy, total hysterectomy, and is status post gastric bypass. She was admitted to observation for fluids, CT of the abdomen, pain control and anti -emetics Pertinent workup WBC 5.4. Hgb 13.2. Amylase 32. CMP unremarkable. CT the abdomen--constipation mid small bowel Mild compression deformity of L1. Hospital course Overnight stay quite uneventful. Patient did start having bowel movements which relieved her pain. Patient was pain-free upon morning assessment and was ready for discharge. Out of signs stable. Afebrile. Tolerated morning added breakfast. No vomiting. No fever. Medication changes/adjustments on discharge Milk of magnesia, 1 ounce by mouth daily scheduled until loose stools then discontinue when necessary Disposition/follow-up Patient will be discharged from observation. Self-care. Report worsening pain , vomiting, fever, follow-up with Pamela Cochran nurse practitioner [facility] - Patient Data Vitals - Most Recent: Last Vital Signs Temp 98.9 F 02/13/18 10:36 Pulse 84 02/13/18 10:36 Resp 18 02/13/18 10:36 BP 168/83 H 02/13/18 10:36 Pulse Ox 96 02/13/18 10:36 Weight - Most Recent: 251 lb 11.2 oz Med Orders - Current: Current Medications Discontinued Medications Hydromorphone HCl (Dilaudid) 1 - 2 mg IVPUSH Q1H PRN PRN Reason: Pain Sodium Chloride (Normal Saline) 50 mls @ 200 mls/hr IV ASDIRECTED [facility] Last Admin: 02/12/18 18:15 Dose: 200 mls/hr Sodium Chloride (Normal Saline) 1,000 mls @ 100 mls/hr IV ASDIRECTED [facility] Last Admin: 02/13/18 03:31 Dose: 100 mls/hr Iopamidol (Isovue-300 (61%)) 75 ml IV ONETIME ONE Stop: 02/12/18 17:48 Last Admin: 02/12/18 18:15 Dose: 75 ml Lactulose (Cephulac) 30 gm PO ONETIME ONE Stop: 02/13/18 08:01 Last Admin: 02/13/18 07:49 Dose: 30 gm Lorazepam (Ativan) 0.5 mg PO BEDTIME [facility] Last Admin: 02/12/18 22:03 Dose: 0.5 mg Magnesium Hydroxide (Milk Of Magnesia) 30 ml PO Q12H PRN PRN Reason: Constipation Last Admin: 02/12/18 20:03 Dose: 30 ml Metoclopramide HCl (Reglan) 10 mg IVPUSH Q6H [facility] Last Admin: 02/13/18 07:50 Dose: Not Given Naloxegol (Movantik) 25 mg PO DAILY [facility] Last Admin: 02/13/18 08:59 Dose: 25 mg Non-Formulary Medication (Dasatinib [Sprycel]) 100 mg PO BEDTIME [facility] Ondansetron HCl (Zofran) 4 mg IVPUSH Q4H PRN PRN Reason: Nausea/Vomiting Oxycodone HCl (Oxycontin) 20 mg PO BID [facility] Last Admin: 02/13/18 08:59 Dose: 20 mg
== END 2018-02-13 11:21 | disposition home or self-care (01) ==
LOC: KA.CT 17:35 → KA.MS 18:16
PROVIDERS: ADMIT Nurse Practitioner Family; ATTEND Nurse Practitioner Family
DX: R10.13 Epigastric pain (principal); K59.00 Constipation, unspecified; E66.9 Obesity, unspecified; G89.29 Other chronic pain; M54.6 Pain in thoracic spine; Z68.41 Body mass index [BMI] 40.0-44.9, adult; K21.9 Gastro-esophageal reflux disease without esophagitis; F41.9 Anxiety disorder, unspecified; Z79.899 Other long term (current) drug therapy
CPT/HCPCS: 74160; 96361; 96374; 96376; A9270-GY; G0378; J2765; J7030; J7050; Q9967

== ENCOUNTER 2018-09-06 07:42 | Emergency (ER) | payer BC, MEDICARE ==
[2018-09-06 07:59] VITALS: BP 160/60
--- NOTE | 2018-09-06 08:45 | CR ---
[id number] RAD/RAD Chest PA And Lateral EXAM: RAD Chest PA And Lateral INDICATION: FEVER, INCREASED RESPIRATION. COMPARISON: July 19, 2017. DISCUSSION: Cardiomediastinal silhouette is stable in size and contour. Mild bilateral interstitial edema and/or infiltrates are again suggested though less prominent when compared to the prior study. IMPRESSION: Mild bilateral interstitial infiltrates and/or edema Boubacar Westbrook DO 09/06/18 0844 Thank you for allowing us to participate in the care of your patient.
[2018-09-06] MEDS ORDERED: Codeine/guaiFENesin 100-10 MG/5 ML Syrup 5 ML Cup PO ONE (09:02)
--- NOTE | 2018-09-06 09:09 | EDM.PDOC ---
ED HPI GENERAL MEDICAL PROBLEM - General Chief Complaint: Fever Stated Complaint: FEVER,COUGH SYMPTOMS Time Seen by Provider: 09/06/18 09:02 Source of Information: Reports: Patient History Limitations: Reports: No Limitations - History of Present Illness INITIAL COMMENTS - FREE TEXT/NARRATIVE: Patient is a 72-year-old female who presents to the emergency department this morning with a complaint of cough and fever. Patient states that cough began on Monday, and when she woke this morning she had 101 temperature, became more concerned and decided to present to the emergency department. Patient denies chest pain, shortness of breath, nausea, vomiting, diarrhea, abdominal pain, contact with persons with similar symptoms, or out of country travel. Onset: Gradual Onset Date: 09/03/18 Duration: Day(s): Severity: Mild Improves with: Reports: None Worsens with: Reports: None Associated Symptoms: Reports: Cough, cough w sputum, Fever/Chills. Denies: Chest Pain, Nausea/Vomiting, Shortness of Breath Treatments FOOT CUTTER: Reports: Acetaminophen - Related Data Allergies Allergy/AdvReac Type Severity Reaction Status Date / Time morphine Allergy Rash Verified 09/06/18 08:03 Home Meds: Home Meds Dasatinib [Sprycel] 100 mg PO BEDTIME 06/14/16 [History] LORazepam [Ativan] 0.5 mg PO BEDTIME 06/14/16 [History] oxyCODONE ER [OxyCONTIN] 20 mg PO BID 06/14/16 [History] Cholecalciferol (Vitamin D3) [Vitamin D3] 2,000 units PO QAM 07/19/17 [History] Cyanocobalamin (Vitamin B12) [Vitamin B12] 500 mcg PO QAM 07/19/17 [History] Multivitamin [Multivitamins] 1 cap PO QAM 07/19/17 [History] Ranitidine HCl [Ranitidine] 150 mg PO BIDAC 07/19/17 [History] Azithromycin [Zithromax] 500 mg PO DAILY #3 tab 09/06/18 [Rx] Ferrous Sulfate 325 mg PO DAILY 09/06/18 [History] Past Medical History HEENT History: Reports: Impaired Vision Gastrointestinal History: Reports: GERD Genitourinary History: Reports: None 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 - Infectious Disease History Infectious Disease History: Reports: Chicken Pox, Measles, Mumps, Rubella - Past Surgical History Head Surgeries/Procedures: Reports: None HEENT Surgical History: Reports: Tonsillectomy GI Surgical History: Reports: Appendectomy, Bariatric Procedure, Cholecystectomy , Colonoscopy, ERCP Female Surgical History: Reports: Hysterectomy Endocrine Surgical History: Reports: None Neurological Surgical History: Reports: Spinal Fusion Musculoskeletal Surgical History: Reports: Arthroscopic Knee, Other (See Below) Other Musculoskeletal Surgeries/Procedures:: bone taken from hip and placed in lower back Oncologic Surgical History: Reports: Bone Marrow Aspiration Dermatological Surgical History: Reports: None Social & Family History - Family History Family Medical History: Noncontributory - Tobacco Use Smoking Status *Q: Never Smoker Second Hand Smoke Exposure: No - Caffeine Use Caffeine Use: Reports: Coffee, Soda Other Caffeine Use: diet - Recreational Drug Use Recreational Drug Use: No ED ROS GENERAL - Review of Systems Review Of Systems: ROS reveals no pertinent complaints other than HPI. Constitutional: Reports: Fever, Chills HEENT: Reports: No Symptoms Respiratory: Reports: Cough, Sputum Cardiovascular: Reports: No Symptoms Endocrine: Reports: No Symptoms GI/Abdominal: Reports: No Symptoms : Reports: No Symptoms Musculoskeletal: Reports: No Symptoms Skin: Reports: No Symptoms Neurological: Reports: No Symptoms Psychiatric: Reports: No Symptoms Hematologic/Lymphatic: Reports: No Symptoms Immunologic: Reports: No Symptoms ED EXAM, GENERAL - Physical Exam Exam: See Below Exam Limited By: No Limitations General Appearance: Alert, WD/WN, No Apparent Distress Eye Exam: Bilateral Eye: Normal Inspection Ears: Normal External Exam, Normal Canal, Normal TMs Nose: Normal Inspection, No Blood, Clear Rhinorrhea Throat/Mouth: Normal Inspection, Normal Oropharynx, No Airway Compromise Head: Atraumatic, Normocephalic Neck: Normal Inspection, Supple, Non-Tender Respiratory/Chest: No Respiratory Distress, Lungs Clear, Normal Breath Sounds, No Accessory Muscle Use Cardiovascular: Regular Rate, Rhythm, No Murmur GI/Abdominal: Normal Bowel Sounds, Soft, Non-Tender Extremities: Normal Inspection, No Pedal Edema Neurological: Alert, Oriented, Normal Cognition Psychiatric: Normal Affect, Normal Mood Skin Exam: Warm, Dry, Intact, Normal Color, No Rash Lymphatic: No Adenopathy Course - Vital Signs Last Recorded V/S: Last Vital Signs Temp 99.9 F 09/06/18 07:54 Pulse 97 09/06/18 07:54 Resp 32 H 09/06/18 07:54 BP 160/60 H 09/06/18 07:54 Pulse Ox 94 L 09/06/18 07:54 - Orders/Labs/Meds Meds: Medications Discontinued Medications Generic Name Dose Route Start Last Admin Trade Name Nas PRN Reason Stop Dose Admin Guaifenesin/Codeine Phosphate 5 ml 09/06/18 09:02 09/06/18 09:05 Robitussin Ac PO 09/06/18 09:03 5 ml ONETIME ONE Administration - Radiology Interpretation Free Text/Narrative:: Chest x-ray shows bilateral hilar congestion - Re-Assessments/Exams Free Text/Narrative Re-Assessment/Exam: 09/06/18 09:14 Patient afebrile, vital signs stable, Robitussin with codeine given in ER for symptom relief. Influenza negative. Prescription for Zithromax given. 09/06/18 09:15 Departure - Departure Time of Disposition: 09:15 Disposition: Home, Self-Care 01 Condition: Good Clinical Impression: Bronchitis - Discharge Information Instructions: Upper Respiratory Infection, Adult, [id number], Fever, Adult, [id number] Referrals: Lilly Carlton PA-C [Primary Care Provider] - Forms: ED Department Discharge Additional Instructions: Follow-up at [facility] in 2-3 days. Return to emergency department sooner if symptoms continue or worsen. Take medication as directed. - Assessment/Plan Assessment:: Bronchitis Plan: Follow-up at [facility]
== END 2018-09-06 09:23 | disposition home or self-care (01) ==
LOC: KA.ED 07:42
DX: J40 Bronchitis, not specified as acute or chronic (principal); K21.9 Gastro-esophageal reflux disease without esophagitis; F41.9 Anxiety disorder, unspecified; Z88.5 Allergy status to narcotic agent; Z79.899 Other long term (current) drug therapy
CPT/HCPCS: 71046; 87804; 99283-25; A9270-GY

== ENCOUNTER 2024-11-03 16:48 | Emergency (ER) | payer MEDICARE, BC ==
[2024-11-03 17:49] LABS: BASOPHILS ABSOLUTE AUTO 0.06 10^3/uL (0.00-0.10); BASOPHILS PERCENT AUTO 0.5 % (0.0-1.0); EOSINOPHILS ABSOLUTE AUTO 0.12 10^3/uL (0.10-0.30); HEMATOCRIT 34.7 % (37.0-47.0); HEMOGLOBIN 11.8 g/dL (12.0-16.0); IMMATURE GRAN ABSOLUTE AUTO 0.04 10^3/uL (0.00-0.04); IMMATURE GRAN PERCENT AUTO 0.3 % (0.0-0.4); LYMPHOCYTES ABSOLUTE AUTO 2.08 10^3/uL (1.00-4.00); LYMPHOCYTES PERCENT AUTO 17.6 % (20.0-40.0); MEAN CORPUSCULAR HEMOGLOBIN 28.9 pg (27.0-31.0); MONOCYTES ABSOLUTE AUTO 1.25 10^3/uL (0.10-0.80); MONOCYTES PERCENT AUTO 10.6 % (2.0-8.0); NEUTROPHILS ABSOLUTE AUTO 8.24 10^3/uL (2.50-7.00); PLATELET COUNT,PLT 394 10^3/uL (150-400); RED BLOOD CELL COUNT 4.08 10^6/uL (3.80-5.50); RED CELL DISTRIBUTION WIDTH 14.3 % (11.5-14.5); WHITE BLOOD CELL COUNT,WBC 11.79 10^3/uL (5.00-10.00)
[2024-11-03] MEDS: Ondansetron 4 MG/2 ML SDV ONE (18:01)
[2024-11-03 18:05] LABS: ALBUMIN 3.73 g/dL (3.40-5.00); ANION GAP 12.1 mmol/L (5-15); BILIRUBIN TOTAL 0.7 mg/dL (0.2-1.0); CALCIUM 9.5 mg/dL (8.7-10.3); CARBON DIOXIDE,CO2 28.4 mmol/L (21.0-32.0); CREATININE 0.77 mg/dL (0.51-1.17); EST CRCL DRUG DOSING (CG) 57.28 mL/min; POTASSIUM,K 4.5 mmol/L (3.5-5.1)
[2024-11-03 22:32] VITALS: BP 113/55; PULSE 81
== END 2024-11-03 19:18 | disposition home or self-care (01) ==
LOC: KA.ED 16:48
DX: R42 Dizziness and giddiness (principal); K21.9 Gastro-esophageal reflux disease without esophagitis; E66.9 Obesity, unspecified; Z68.39 Body mass index [BMI] 39.0-39.9, adult; Z90.49 Acquired absence of other specified parts of digestive tract; Z90.710 Acquired absence of both cervix and uterus; Z79.899 Other long term (current) drug therapy; Z91.048 Other nonmedicinal substance allergy status; Z88.5 Allergy status to narcotic agent
CPT/HCPCS: 70450; 80053; 85025; 99284